=== PATIENT | female | born 1995 | race Two or more races ===

== ENCOUNTER 2017-09-21 16:29 | Inpatient (IN) | payer OTHER ==
[~2017-09-21] VITALS: Ht 167.6 cm; Wt 61.7 kg
[2017-09-22] MEDS ORDERED: PRENA1 TRUE CO1 EACH PO (11:52)
== END 2017-09-23 16:19 | DRG 775 ==
LOC: OBS/DEL 16:29 → LDR 18:00 → OB/GYN 18:00
PROC: 10E0XZZ Delivery of Products of Conception, External Approach (ICD-10-PCS; principal; 2017-09-21)
PROC: 0W8NXZZ Division of Female Perineum, External Approach (ICD-10-PCS; 2017-09-21)
PROC: 4A1HXCZ Monitoring of Products of Conception, Cardiac Rate, External Approach (ICD-10-PCS; 2017-09-21)
DX: O80 Encounter for full-term uncomplicated delivery (principal); Z3A.39 39 weeks gestation of pregnancy; Z37.0 Single live birth